=== PATIENT | female | born 1990 | race Caucasian/White ===

== ENCOUNTER 2017-08-17 21:58 | Emergency (ER) | payer MEDICARE ==
--- NOTE | 2017-08-17 22:28 | ERNOTE ---
Integumentary HPI - General Presenting Symptoms: insect bite Time Seen by Provider: 08/17/17 22:17 Source: patient Exam Limitations: no limitations - Immun/Allergies/Home Medications Immunizations: IMMUNIZATION HX Immunizations Up to Date Yes History of Influenza Vaccine No Hx Pneumococcal Vaccination No Allergies/Adverse Reactions: Allergies Allergy/AdvReac Type Severity Reaction Status Date / Time codeine Allergy Verified 08/17/17 22:08 Home Medications: HOME MEDICATIONS Albuterol Sulfate [Albuterol Sulfate 2.5 MG/3 ML] 2.5 mg IH Q4H PRN 08/17/17 [ Last Taken Unknown] Albuterol Sulfate [Proventil Hfa] 6.7 gm IH QID PRN 08/17/17 [Last Taken Unknown ] Levothyroxine Sodium [Levo-T] 300 mcg PO DAILY 08/17/17 [Last Taken Unknown] - Pain Pain Score: 8 - History of Present Illness Narrative: Pt states she got a "bug bite" on her right inner thigh 2 days ago. It began to be painful and today pain extends down the front of her leg. Location: Reports: lower extremity Quality: Reports: itching, painful Severity: moderate Exposure: Reports: no cause identified Modifying Factors - (Improves): Reports: nothing Modifying Factors - (Worsens): Reports: nothing Associated Symptoms: Reports: flushing - yesterday Review of Systems - Review of Systems Constitutional: Present: fever, chills - yesterday. Absent: recent illness EYE: Present: no symptoms reported ENT: Present: no symptoms reported Cardiology: Absent: chest pain Gastrointestinal/Abdominal: Present: nausea, vomiting, diarrhea - yesterday Genitourinary: Absent: frequency, dysuria Musculoskeletal: Absent: back pain, joint pain Skin: Present: See HPI Neurological: Absent: numbness, tingling Endocrine: Present: intolerance to cold - yesterday Hematologic/Lymphatic: Present: no symptoms reported Psych: Present: no symptoms reported - Patient's Past Medical History Patient History - Medical: Hypothyroidism, Obesity Patient History - Cardiac/Respiratory: Asthma Patient History - Cancer: No Hx of Cancer Patient History - Surgical Procedures: Other Patient History - Other: None LMP (females 10-50): 1 month - Social History Living Situations: home Psych History: No pertinent hx Smoking Status: Former smoker Have you smoked in the past 12 months: No Do you dip or chew tobacco: No Alcohol Use: none Drug Use: none - Immunizations Immunizations Up to Date: Yes Hx Pneumococcal Vaccination: No History of Influenza Vaccine: No Physical Exam - Physical Exam General Appearance: Present: wd/wn, alert, no apparent distress Head Exam: Present: normal inspection, no evidence of injury Respiratory: Present: no respiratory distress, no accessory muscle use Gastrointestinal/Abdominal: Present: nondistended, soft, tenderness - mild epigastric Back Exam: Present: normal inspection, normal range of motion Extremity Exam: Present: other - right leg tenderness diffuse and more anterior than posterior. No cord palpated in leg or thigh Neurological Exam: Present: alert, oriented, normal mood/affect, no motor/ sensory deficits Skin Exam: Present: normal color, warm/dry, other - small scabbed papule on the right medial upper thigh, no erythema or induration ED Progress - Results and Orders Patient's Lab Results:: I have reviewed the patient's lab results. Results and Orders: Laboratory Tests 08/17/17 08/17/17 22:45 22:50 WBC 10.2 Hgb 13.2 Hct 39.7 Plt Count 366 D-Dimer 0.25 - Vital Signs Patient's Vital Signs:: I have reviewed the patient's vital signs. Vital Signs: Vital Signs 08/17/17 22:02 Temperature 36.4 C L Pulse Rate 78 Respiratory 16 Rate Blood Pressure 170/91 O2 Sat by Pulse 97 Oximetry - Progress/Reassessment Chief Complaint: Insect Bite Departure Clinical Impression: Leg pain, anterior Qualifiers: Laterality: right Qualified Code(s): M79.604 - Pain in right leg - Departure Disposition: Home self-care Condition: Good Instructions: Heat Therapy, Insect Bite Additional Instructions: You may try using aleve 2 tabs twice a day with food. See your primary care physician if not improving
[2017-08-17 22:56] LABS: Hematocrit 39.7 % (37.0-47.0); Hemoglobin 13.2 gm/dL (12.5-16.0); Mean Cell Volume 92.1 fl (78-100); Mean Corpuscular Hemoglobin 30.6 pg (27-31); Mean Corpuscular Hgb Conc 33.2 g/dl (32-36); Mean Platelet Volume 9.2 fl (6.0-9.5); Neutrophil # 5.1 K/mm3 (1.3-6.0); Neutrophil % 49.6 % (42-75.0); Platelet Count 366 K/mm3 (150-450); Red Blood Count 4.31 M/mm3 (4.2-5.4); Red Cell Distribution Width 13.2 % (11.5-14.0); White Blood Count 10.2 K/mm3 (4.0-10.5)
[2017-08-17 23:12] LABS: Albumin * 3.8 gm/dl (3.4-5.0); Anion Gap 13.9 mmol/L (6.8-13.8); Bilirubin, Total 0.2 mg/dL (0.0-1.1); Calcium * 9.2 mg/dL (7.9-10.9); Carbon Dioxide 28.3 mmol/L (24-32.6); Potassium 4.2 mmol/L (3.4-4.6); Total Protein 7.9 gm/dL (6.2-8.2)
[2017-08-17] MEDS ORDERED: KETOROLAC TROMETHAMINE 60 MG/2 ML VIAL IM ONE ×2 (23:28)
[2017-08-17 23:41] VITALS: BP 141/69
== END 2017-08-17 23:34 | disposition home or self-care (01) ==
LOC: ER 21:58
DX: M79.604 Pain in right leg (principal); Z87.891 Personal history of nicotine dependence; E03.9 Hypothyroidism, unspecified; J45.909 Unspecified asthma, uncomplicated

== ENCOUNTER 2017-10-20 18:23 | Emergency (ER) | payer MEDICARE ==
[2017-10-20] MEDS ORDERED: KETOROLAC TROMETHAMINE 60 MG/2 ML VIAL IM ONE ×2 (18:57→19:01)
[2017-10-20] MEDS ORDERED: PROMETHAZINE HCL 50 MG/ML AMPUL IM ONE ×2 (18:58→19:01)
--- NOTE | 2017-10-20 19:12 | ERNOTE ---
Abdominal HPI - Narrative Date of Service: 10/20/17 - General Chief Complaint: Abdominal Pain Time Seen by Provider: 10/20/17 18:46 Source: patient Exam Limitations: no limitations - Immun/Allergies/Home Medications Immunizatons: IMMUNIZATION HX Immunizations Up to Date Yes History of Influenza Vaccine No Hx Pneumococcal Vaccination No Allergies/Adverse Reactions: Allergies codeine Allergy (Verified 10/20/17 18:39) Home Medications: HOME MEDICATIONS Albuterol Sulfate [Albuterol Sulfate 2.5 MG/3 ML] 2.5 mg IH Q4H PRN 08/17/17 [ Last Taken Unknown] Albuterol Sulfate [Proventil Hfa] 6.7 gm IH QID PRN 08/17/17 [Last Taken Unknown ] Levothyroxine Sodium [Levo-T] 300 mcg PO DAILY 08/17/17 [Last Taken Unknown] metFORMIN HCL [Metformin HCl] 1,000 mg PO BID 10/20/17 [Last Taken Unknown] - History of Present Illness Narrative: Pt is a 27 year old female who presents with complaints of RLQ pain. States that her pain began at 5:30p 10/19/17, yesterday evening following rolling over to reach her cell phone. She endorse hearing a "pop". Has had similar symptoms 1.5 years ago and was diagnosed with ovarian cyst. Denies fevers/chills, diarrhea, dysuria, or possible -LMP was last week. Endorses nausea, vomiting yesterday-none today. 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 Date (Duration): 10/19/17 Time (Timing): 17:30 Timing: constant Quality: severe, stabbing Activities at Onset: activity Modifying Factors - (Worsens): Present: movement. Absent: defecating, eating, urinating Associated Symptoms: Present: nausea, vomiting. Absent: back pain, diarrhea- gross blood, fever/chills Prior Abdominal Problems: Present: similar symptoms Review of Systems - Review of Systems Constitutional: Absent: fever, chills Respiratory: Present: no symptoms reported Cardiology: Present: no symptoms reported Gastrointestinal/Abdominal: Present: See HPI, nausea, vomiting, abdominal pain. Absent: diarrhea, constipation Genitourinary: Present: no symptoms reported Hematologic/Lymphatic: Present: no symptoms reported - Patient's Past Medical History Patient History - Medical: Hypothyroidism, Obesity Patient History - Cardiac/Respiratory: Asthma, Other - ovarian cyst Patient History - Cancer: No Hx of Cancer Patient History - Surgical Procedures: Other Patient History - Other: None LMP (females 10-50): last week - Social History Living Situations: alone Psych History: No pertinent hx Smoking Status: Never smoker Do you dip or chew tobacco: No Alcohol Use: none Drug Use: none - Immunizations Immunizations Up to Date: Yes Hx Pneumococcal Vaccination: No History of Influenza Vaccine: No Physical Exam - Physical Exam General Appearance: Present: wd/wn, alert, mild distress Respiratory: Present: no respiratory distress, no accessory muscle use Gastrointestinal/Abdominal: Present: normal bowel sounds, nondistended, soft, tenderness, guarding. Absent: nontender, distended Neurological Exam: Present: alert, oriented, normal mood/affect, no motor/ sensory deficits ED Progress - Vital Signs Vital Signs: Vital Signs 10/20/17 18:30 Temperature 36.5 C Pulse Rate 88 Respiratory 26 H Rate Blood Pressure 156/98 O2 Sat by Pulse 98 Oximetry - Progress/Reassessment Chief Complaint: Abdominal Pain Plan - Plan Plan: Phenergan and torodol given to pt with relief of symptoms. Abdominal xrays reviewed with suggestions of possible colitis and hepatomegaly. No abnormalities noted in chemistries. Departure Clinical Impression: Abdominal pain Qualifiers: Abdominal location: right upper quadrant Qualified Code(s): R10.11 - Right upper quadrant pain - Departure Disposition: Home Follow Up Needed Condition: Good Instructions: Abdominal Pain, Adult, [id number] Additional Instructions: Please follow up with OBGYN Call or return to ER if symptoms worse.
[2017-10-20 19:28] LABS: Hemoglobin 13.7 gm/dL (12.5-16.0); Mean Cell Volume 91.5 fl (78-100); Mean Corpuscular Hemoglobin 31.4 pg (27-31); Mean Corpuscular Hgb Conc 34.3 g/dl (32-36); Mean Platelet Volume 9.3 fl (6.0-9.5); Neutrophil # 5.8 K/mm3 (1.3-6.0); Neutrophil % 52.5 % (42-75.0); Platelet Count 352 K/mm3 (150-450); Red Blood Count 4.37 M/mm3 (4.2-5.4); Red Cell Distribution Width 12.9 % (11.5-14.0)
[2017-10-20 19:41] LABS: Albumin * 3.8 gm/dl (3.4-5.0); Anion Gap 10.8 mmol/L (6.8-13.8); Bilirubin, Total 0.2 mg/dL (0.0-1.1); Ca. Corrected For Albumin 8.7 mg/dL (8.4-10.2); Calcium * 8.9 mg/dL (7.9-10.9); Potassium 3.8 mmol/L (3.4-4.6); Total Protein 7.8 gm/dL (6.2-8.2)
[2017-10-20 20:34] LABS: Urine Bilirubin Negative (NEGATIVE); Urine Blood Negative /ul (NEGATIVE); Urine Ketone Negative (NEGATIVE); Urine Nitrite Negative (NEGATIVE); Urine Protein Negative (NEGATIVE); Urine Specific Gravity 1.015 SP.GR. (1.005-1.010); Urine Urobilinogen Normal (NORMAL)
[2017-10-20 20:44] LABS: Urine Amorphous Sediment Moderate - 2+ (NONE-FEW); Urine Appearance Cloudy; Urine Bacteria 1+; Urine Color Yellow; Urine RBC None Seen /hpf (0-5); Urine WBC TRACE /hpf (0-5)
[2017-10-20 20:55] VITALS: BP 135/79
== END 2017-10-20 20:55 | disposition home or self-care (01) ==
LOC: ER 18:23
DX: R10.11 Right upper quadrant pain (principal); E03.9 Hypothyroidism, unspecified; J45.909 Unspecified asthma, uncomplicated

== ENCOUNTER 2017-11-05 12:24 | Emergency (ER) | payer MEDICARE ==
[2017-11-05] MEDS ORDERED: ALBUTEROL SULFATE/IPRATROPIUM 3 ML NEBU IH ONE ×2 (12:29→12:33)
[2017-11-05] MEDS ORDERED: ALBUTEROL SULFATE 2.5 MG/0.5 ML VIAL.NEB IH ONE ×4 (12:35→13:35)
[2017-11-05 12:55] LABS: Hematocrit 39.8 % (37.0-47.0); Hemoglobin 13.5 gm/dL (12.5-16.0); Mean Cell Volume 92.1 fl (78-100); Mean Corpuscular Hemoglobin 31.3 pg (27-31); Mean Corpuscular Hgb Conc 33.9 g/dl (32-36); Mean Platelet Volume 8.9 fl (6.0-9.5); Neutrophil # 4.5 K/mm3 (1.3-6.0); Neutrophil % 48.7 % (42-75.0); Platelet Count 350 K/mm3 (150-450); Red Blood Count 4.32 M/mm3 (4.2-5.4); Red Cell Distribution Width 12.8 % (11.5-14.0); White Blood Count 9.2 K/mm3 (4.0-10.5)
[2017-11-05 13:15] LABS: Albumin * 3.4 gm/dl (3.4-5.0); Anion Gap 13.1 mmol/L (6.8-13.8); BUN/Creatinine Ratio 14.9 (9.0-21.6); Bilirubin, Total 0.2 mg/dL (0.0-1.1); Ca. Corrected For Albumin 8.7 mg/dL (8.4-10.2); Calcium * 8.5 mg/dL (7.9-10.9); Carbon Dioxide 26.7 mmol/L (24-32.6); Potassium 3.8 mmol/L (3.4-4.6); Total Protein 7.7 gm/dL (6.2-8.2)
--- NOTE | 2017-11-05 14:51 | ERNOTE ---
Dyspnea - Date Date of Service: 11/05/17 - General Presenting Symptoms: shortness of breath Time Seen by Provider: 11/05/17 12:28 Source: patient Exam Limitations: no limitations - Immun/Allergies/Home Medications Immunizations: IMMUNIZATION HX Immunizations Up to Date No History of Influenza Vaccine No Hx Pneumococcal Vaccination No Allergies/Adverse Reactions: Allergies codeine Allergy (Verified 10/20/17 18:39) Home Medications: HOME MEDICATIONS Albuterol Sulfate [Albuterol Sulfate 2.5 MG/3 ML] 2.5 mg IH Q4H PRN 08/17/17 [ Last Taken Unknown] Albuterol Sulfate [Proventil Hfa] 6.7 gm IH QID PRN 08/17/17 [Last Taken Unknown ] Levothyroxine Sodium [Levo-T] 300 mcg PO DAILY 08/17/17 [Last Taken Unknown] metFORMIN HCL [Metformin HCl] 1,000 mg PO BID 10/20/17 [Last Taken Unknown] Albuterol Sulfate [Proair Hfa] 2 puff IH Q4H PRN #1 inhaler 11/05/17 [Last Taken Unknown] Azithromycin [Zithromax] 500 mg PO NOW #6 tab 11/05/17 [Last Taken Unknown] Prednisone 50 mg PO DAILY #5 tablet 11/05/17 [Last Taken Unknown] - History of Present Illness Narrative: Patient presents to the ED for SOB. She relates URI Sx for 3 days. Cough, nasal congestion which has caused her asthma to flare up. She used her asthma in [place] but it didn't help so came to the ED. No CP. No DVT Sx, calf pain or leg swelling. Some ear pressure and sinus pressure/drainage but no ST or trouble swallowing. Has not seen anyone else for this. 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 Initiating event: Reports: upper resp illness Frequency of episodes: Reports: occassional episodes Modifying Factors - (Improves): Reports: nothing Modifying Factors (Worsens): Reports: nothing Associated Symptoms-Dyspnea: Denies: chest pain/discomfort, leg/calf pain, ankle /leg swelling, lightheadedness, weakness Prior Treatment: Denies: recently seen Review of Systems - Review of Systems Constitutional: Absent: fever EYE: Absent: eye discharge ENT: Present: See HPI Respiratory: Present: See HPI Cardiology: Absent: chest pain Gastrointestinal/Abdominal: Absent: abdominal pain Skin: Absent: rash Neurological: Absent: weakness - Patient's Past Medical History Patient History - Medical: Hypothyroidism, Obesity Patient History - Cardiac/Respiratory: Asthma, Other Patient History - Cancer: No Hx of Cancer Patient History - Surgical Procedures: Other Patient History - Other: None LMP (females 10-50): 1 month - Social History Living Situations: alone Abuse History: No History of abuse Psych History: No pertinent hx Smoking Status: Former smoker Have you smoked in the past 12 months: Yes Do you dip or chew tobacco: No Patient requests Smoking Cessation Consult: No Initiate information on Smoking Cessation: No Alcohol Use: none Drug Use: none - Immunizations Immunizations Up to Date: No Hx Pneumococcal Vaccination: No History of Influenza Vaccine: No Physical Exam - Physical Exam General Appearance: Present: alert, no apparent distress, other - speaking in full sentences Head Exam: Present: normal inspection, no evidence of injury Eye Exam: Normal inspection: bilateral, PERRL: bilateral Ears, Nose, Throat: Present: abnormal TM (R), nasal congestion, sinus pain/ drainage. Absent: pharyngeal erythema, pharyngeal swelling, tonsillar exudate, tonsillar swelling, dry mucous membranes Neck: Present: normal inspection Respiratory: Present: no respiratory distress, other - scattered moderate wheezes throughout. No distress Cardiovascular/Chest: Present: regular rate, rhythm, normal peripheral pulses Gastrointestinal/Abdominal: Present: normal bowel sounds, nontender, nondistended, soft Back Exam: Present: normal range of motion Extremity Exam: Present: normal inspection, no edema, other - no evidence of DVT Neurological Exam: Present: alert, no motor/sensory deficits Skin Exam: Present: normal color, warm/dry ED Progress - Results and Orders Patient's Lab Results:: I have reviewed the patient's lab results. - Vital Signs Patient's Vital Signs:: I have reviewed the patient's vital signs. Vital Signs: Vital Signs 11/05/17 11/05/17 11/05/17 12:33 12:37 12:52 Temperature 36.7 C 37.3 C Pulse Rate 95 80 73 Respiratory 26 H 26 H 18 Rate Blood Pressure 154/91 166/85 O2 Sat by Pulse 95 97 94 Oximetry 11/05/17 11/05/17 11/05/17 12:53 12:58 13:39 Temperature Pulse Rate 76 80 79 Respiratory 18 16 Rate Blood Pressure O2 Sat by Pulse 95 96 Oximetry - EKG EKG: NSR EKG read: Interp. by me EKG Comments: NSR rate 80. Non-specific. No evidence of STEMI - X-Ray X-Ray #1 X-Ray: chest Interpretation: Interp. by me X-ray Comments: I reviewed official radiology report - Progress/Reassessment Chief Complaint: Dyspnea Progress Note-Subjective: 11/05/17 14:49 Nothing to suggest PE, ACS, aortic dissection, CHF. HE wheezing was resolved after 3 nebs. NO distress or tachypnea. She was requesting to go home. Walking RA pulse ox 97%, she declines additional observation. ABx, steroids, inhaler and Tuesday follow-up. I discussed warning signs and reasons to return as well as the need for close f/u. Departure Clinical Impression: Bronchitis, Asthma exacerbation - Departure Disposition: Home self-care Condition: Stable Instructions: Asthma, Adult, [id number] Additional Instructions: Rest. Fluids. Steroids and antibiotics as directed. Inhalers. Follow-up Tuesday with your doctor for a re-check. Return for fever, trouble breathing or if your condition worsens or changes in any way. Prescriptions: Albuterol Sulfate [Proair Hfa] 2 puff IH Q4H PRN #1 inhaler PRN Reason: Shortness Of Breath Azithromycin [Zithromax] 500 mg PO NOW #6 tab Prednisone 50 mg PO DAILY #5 tablet
[2017-11-05 15:23] VITALS: BP 173/82
== END 2017-11-05 14:50 | disposition home or self-care (01) ==
LOC: ER 12:24
DX: J45.901 Unspecified asthma with (acute) exacerbation (principal); Z87.891 Personal history of nicotine dependence